=== PATIENT | male | born 1975 | race Two or more races ===

== ENCOUNTER 2018-10-15 18:39 | Inpatient (IN) | payer OTHER ==
[~2018-10-15] VITALS: Ht 172.7 cm; Wt 91.1 kg
[2018-10-18 12:59] VITALS: BP 139/81
== END 2018-10-18 18:22 | disposition home or self-care (01) | DRG 683 ==
LOC: EDBD 18:39 → ED 22:50 → EDIP 22:59 → 5SO 10-16 00:15 → 4WST 10-16 11:22
PROVIDERS: ADMIT Internal Medicine; ATTEND Internal Medicine
DX: N17.9 Acute kidney failure, unspecified (principal); J81.1 Chronic pulmonary edema; E86.0 Dehydration; T67.5XXA Heat exhaustion, unspecified, initial encounter; R91.8 Other nonspecific abnormal finding of lung field; X30.XXXA Exposure to excessive natural heat, initial encounter; Y93.89 Activity, other specified; Y92.89 Other specified places as the place of occurrence of the external cause; Y99.8 Other external cause status; Z83.3 Family history of diabetes mellitus
CPT/HCPCS: 36415; 71045; 71275; 74176; 77012; 80048; 80053; 81003; 82550; 83036; 83690; 83735; 83880; 84443; 84484; 85025; 85379; 85610; 85730; 93005; 93306; 99156; 99157; 99285; G0378; J2250; J3010; Q9967; J2310; J7030